=== PATIENT | female | born 2000 | race Caucasian/White ===

== ENCOUNTER 2019-08-07 15:24 | Inpatient (IN) ==
[2019-08-07] MEDS ORDERED: OXYTOCIN 30 UNITS/500ML NSS ONE (15:29)
[2019-08-07] MEDS ORDERED: SUPERCREAM 0.870% 15 GM JAR EXT PRN (15:55)
[2019-08-07] MEDS ORDERED: HYDROCORTISONE ACETATE 25 MG SUPP PR PRN (15:55)
[2019-08-07] MEDS ORDERED: OXYCODONE/ACETAMINOPHEN 5mg/325mg TAB PO PRN (15:55)
[2019-08-07] MEDS ORDERED: bisacodyL 10 MG SUPP PR PRN (15:55)
[2019-08-07] MEDS ORDERED: ACETAMINOPHEN 325 MG TAB PO PRN (15:55)
[2019-08-07] MEDS ORDERED: OXYTOCIN 30 UNITS/500 ML BAG IV PRN (15:55)
[2019-08-07] MEDS ORDERED: BENZOCAINE 20% AER SPR 82.5 GM CAN EXT PRN (15:55)
[2019-08-07] MEDS ORDERED: DIPHTHERIA/TETANUS/PERTUSSIS 0.5 ML SYR/VIAL IM ONE (15:55)
--- NOTE | 2019-08-07 15:58 | Delivery Summary ---
Vaginal Delivery Summary Date of Service August 07, 2019 Precipitous delivery patient arrived fully dilated and wishing to push she had received care in our office on exam she was fully and pushed over several contractions delivering a baby in occiput anterior position there was a loose nuchal cord that was passed over the baby's head and then gentle traction no excessive force baby was delivered live vigorous infant cord clamped and cut cord gases obtained there was some extensive tearing specifically she had a second-degree tear but somewhat of a sulcus on the left side as well these were repaired with 3-0 Vicryl I did use local anesthetic but it was somewhat suboptimal due to patient cooperation I did get the vagina hemostatic within limits and felt the vagina was repaired properly at the end estimated blood loss was 350 mL sponge and instrument counts were correct
[2019-08-07 16:18] LABS: Base Excess Cord Arterial Bld -2.6 mEq/L (-9-1.8); CO2 Cord Arterial Blood 54 mmHg (39.1-73.5); HCO3 Cord Arterial Blood 25 mmol/L (19.7-28.5); pH Cord Arterial Blood 7.28 (7.1-7.38)
[2019-08-07] MEDS: IBUPROFEN 600 MG TAB PO PRN (16:22)
[2019-08-07 16:23] LABS: Base Excess Cord Venous Blood -0.7 mEq/L (-7.7-1.9); Cord Venous Blood HCO3 23 mmol/L (18.4-26.8); Cord Venous Blood PCO2 35 mmHg (30.4-57.2); Cord Venous Blood PO2 27 mmHg (14.1-43.3); Cord Venous Blood pH 7.44 (7.20-7.44)
[2019-08-07 16:31] LABS: Oxygen Sat Cord Arterial Blood < 60.0 % (<60); PO2 Cord Arterial Blood < 10.0 % (4.1-31.7)
[2019-08-07] MEDS: DOCUSATE SODIUM 100 MG CAP PO SCH (20:20)
[2019-08-08] MEDS: IBUPROFEN 600 MG TAB PO PRN ×3 (04:41→20:08)
--- NOTE | 2019-08-08 05:53 | Obstetrical Progress Note ---
Date of Service August 08, 2019 Assessment & Plan (1) Status post vaginal delivery: Halle is a 19 yo on PPD 1 after a at term. - GBS -, Blood Type A+, Rubella immune -Vitals reviewed and WNL (Tmax 36.9) -Hemoglobin reviewed: 10.4 down to 9.6 (patient is asymptomatic and has been taking oral iron supplement since pre- period for anemia; we will continue ferrous sulfate 325mg,PO, twice daily) -Tylenol prn for headache -patient is doing clinically well Continue routine post- care. - After discharge will have [address] Cole. Supervising Physician Co-Signing Physician Notes Resident Physician Supervision Note: I interviewed and examined the patient. Discussed with Dr. Mancilla and agree with findings and plan as documented in the note. Any exceptions or clarifications are listed here: [None] Documented By: Yue Cole MD, FACOG Subjective Ambulation: ambulating normally Voiding: no voiding problems Passing Gas:: has not yet Diet Tolerance:: regular diet starting with breakfast Lochia:: Moderate Feeding Type:: breast feeding Review of Systems Constitutional: no fever, no chills and no sweats Eyes: no worsening vision Respiratory: no cough and no dyspnea Cardiovascular: no chest pain, no palpitations, no edema and no calf pain Gastrointestinal: no nausea and no vomiting Genitourinary: no dysuria and no urinary frequency Neurologic: + headache(s) (started this morning) Physical Exam Constitutional: WD/WN, vitals as above + obese; no acute distress Respiratory: normal respiratory effort, lungs clear to auscultation does not use accessory muscles Auscultation: no crackles, no rales, no rhonchi, no wheezes and no pleural rub Cardiovascular: Rate/Rhythm: regular rate and regular rhythm Heart Sounds: normal S1 and normal S2; no gallop, no murmur and no cardiac rub Extremities: no calf tenderness and no pedal edema Gastrointestinal (Abdomen): Inspection/Auscultation: normal bowel sounds; abdomen not distended Percussion/Palpation: abdomen soft Genitourinary: Uterus: fundus firm, palpable 2 cm below the umbilicus Results & Data Vital Signs (Past 12 Hours) Vital Signs Temp Pulse Resp BP Pulse Ox 11/20/19 05:04 36.9 C 88 16 116/76 98 08/08/19 00:09 36.8 C 85 16 111/69 98 08/07/19 18:50 36.9 C 97 H 20 115/74 08/07/19 18:00 36.8 C 20 Resident Activity Tracking Resident Involvement: Resident Care Provided Care Provided: OB Delivery
[2019-08-08 06:13] LABS: Hematocrit (blood only) 29.2 % (37-47); Hemoglobin 9.6 g/dL (12.0-16.0); Mean Corpuscular Hemoglobin 28.2 pg (25-34); Mean Corpuscular Hgb Conc 32.9 g/dL (32-36); Mean Corpuscular Volume 85.9 fL (80-100); Mean Platelet Volume 10.3 fL (7.4-10.4); Platelet Count 234 K/uL (130-400); RDW Coefficient of Variation 14.4 % (11.5-14.5); RDW Standard Deviation 44.7 fL (36.4-46.3); White Blood Count 15.13 K/uL (4.8-10.8)
[2019-08-08] MEDS: DOCUSATE SODIUM 100 MG CAP PO SCH ×2 (08:41→21:01)
[2019-08-08] MEDS: PRENATAL VITAMIN 1 TAB PO SCH (08:41)
[2019-08-08] MEDS ORDERED: bisacodyL 5 MG TABEC PO SCH (20:00)
[2019-08-09] MEDS: IBUPROFEN 600 MG TAB PO PRN (05:12)
[2019-08-09 06:05] LABS: Hematocrit (blood only) 29.3 % (37-47); Hemoglobin 9.5 g/dL (12.0-16.0)
--- NOTE | 2019-08-09 06:29 | Obstetrical Progress Note ---
Date of Service August 09, 2019 Assessment & Plan (1) Status post vaginal delivery: Halle is a 19 yo on PPD 2 after a at term. - GBS -, Blood Type A+, Rubella immune -Vitals reviewed and WNL -Hemoglobin reviewed: 10.4 down to 9.6 (patient is asymptomatic and has been taking oral iron supplement since pre- period for anemia; we will continue ferrous sulfate 325mg,PO, daily) -patient is doing clinically well Discharge instructions reviewed - After discharge will have [address] Cole. Supervising Physician Co-Signing Physician Notes Resident Physician Supervision Note: I was present with Dr. Mancilla during the history and exam. I discussed the case with the resident and agree with the findings and plan as documented in the note. Any exceptions or clarifications are listed here: pt doing well but having tailbone pain. perineum exam with normal healing no evid of hematoma or disrupted laceration site, ff 2 down. suspect needs supportive measures for tailbone and time. she verbalized understanding. plan 6wk pp check, other instructions reviewed. Ready for discharge. Documented By: Florence Mayorga MD, FACOG Subjective Ambulation: ambulating normally Voiding: no voiding problems Passing Gas:: yes Diet Tolerance:: regular Lochia:: Mild Feeding Type:: breast feeding Review of Systems Constitutional: no fever, no chills and no sweats Eyes: no worsening vision Respiratory: no cough and no dyspnea Cardiovascular: no chest pain, no palpitations and no calf pain Gastrointestinal: no nausea, no vomiting, no constipation and no diarrhea/loose stools Genitourinary: no dysuria and no urinary frequency Musculoskeletal: + back pain (discomfort at site of epidural) Neurologic: no headache(s) Physical Exam Constitutional: WD/WN, vitals as above + obese; no acute distress Eyes: + anicteric sclerae Neck: normal visual inspection Respiratory: normal respiratory effort, lungs clear to auscultation does not use accessory muscles Auscultation: no crackles, no rales, no rhonchi, no wheezes and no pleural rub Cardiovascular: Rate/Rhythm: regular rate and regular rhythm Heart Sounds: normal S1 and normal S2; no gallop, no murmur and no cardiac rub Extremities: no calf tenderness and no pedal edema Gastrointestinal (Abdomen): Inspection/Auscultation: normal bowel sounds; abdomen not distended Percussion/Palpation: abdomen soft Neurologic: awake; no focal motor deficits Psychiatric: A+Ox3, euthymic affect Genitourinary: Uterus: fundus firm, palpable 2 cm below the umbilicus Results & Data Vital Signs (Past 12 Hours) Vital Signs Temp Pulse Resp BP 08/09/19 00:10 36.8 C 85 18 117/70 08/08/19 19:50 36.6 C 98 H 18 120/80 Resident Activity Tracking Resident Involvement: Resident Care Provided Care Provided: OB Delivery
[2019-08-09] MEDS: PRENATAL VITAMIN 1 TAB PO SCH (08:25)
[2019-08-09] MEDS: DOCUSATE SODIUM 100 MG CAP PO SCH (08:25)
== END 2019-08-09 10:30 | disposition home or self-care (01) | DRG 807 ==
LOC: 4S1 15:24 → 4S2 18:20

== ENCOUNTER 2020-12-25 13:07 | Inpatient (IN) ==
[2020-12-25] MEDS ORDERED: OXYTOCIN 30 UNITS/500 ML BAG IV PRN ×3 (14:43→19:11)
[2020-12-25] MEDS ORDERED: LACTATED RINGER'S 1,000 ML IV PRN (14:43)
--- NOTE | 2020-12-25 14:49 | History & Physical Report ---
Date of Service December 25, 2020 Assessment & Plan (1) : Admission and Anticipated Discharge Date Admission Date: Admit to L&D for labor. EFM/toco, IV fluids, labs. COVID swab per policy. Patient is thinking she'd like to go without epidural, as she did not have one with last delivery. History of Present Illness Chief Complaint: labor Primary Care Provider: Karon Ramey PA-C 20yo @ 38 01/23, presents in labor to L&D. Was danna irregularly yesterday in office, cervix exam was 3cm. Today, ctx have picked up - was having ctx Q 4min prior to arrival at L&D. Upon arrival, feels like ctx have spaced somewhat, but still feeling them. + movement. No vaginal bleeding or leaking fluid. complicated by obesity and last delivery was within minutes of arrival at hospital. Allergies Allergy/AdvReac Type Severity Reaction Status Date / Time codeine AdvReac Severe SEVERE Verified 12/25/20 13:38 NAUSEA AND VOMITING Home Medications Medication Instructions Recorded Confirmed Type prenat.vits,gregorio,bbz-ygub-dbuob 1 tab PO DAILY 12/25/20 12/25/20 History [ Vitamin] Patient History Medical History History of anxiety History of chicken pox History of depression PCOS (polycystic ovarian syndrome) Surgical History History of wisdom tooth extraction Family History Brother Anxiety Cleft lip Cleft palate Depression Family history of fraternal twins Grandmother (Maternal) Anxiety Cleft lip Depression Diabetes Family history of fraternal twins Mother Kidney disease Ovarian cyst Grandmother Breast cancer Denies family history of Ovarian cancer Colorectal cancer Social History Smoking Status: Never smoker Hx Alcohol Use: No Hx Substance Use: No Preferred Language: Mexican Communication Ability: Effective Pick Up Driver Required: No Beliefs That Will Affect Care: None marital status: marital status details: Prieto Martinez (27) [phone] Current Living Situation: Spouse and Family Current Living Situation Comment: lives with spouse, daughter, 2 stepchildren, dog, cats-spouse changing ketan current occupational status: employed current occupation: [employer] Other Information That Helps Us Care for You: No Feels Safe at Home: Yes Safety Concerns: Feels Safe At This Time Assistive Devices: None Review of Systems All systems reviewed & are unremarkable except as noted in HPI & below Physical Exam Physical Exam: SVE 4-5/70/-3 Constitutional: WD/WN, vitals as above Respiratory: normal respiratory effort, lungs clear to auscultation no respiratory distress Cardiovascular: Rate/Rhythm: regular rate and regular rhythm Gastrointestinal (Abdomen): Inspection/Auscultation: abdomen normal to inspection Percussion/Palpation: abdomen soft; abdomen nontender Gravid. No s/s chorio or abruption. Skin: no rashes, warm and dry Psychiatric: A+Ox3, euthymic affect Results & Data ([facility]) Vital Signs (Past 12 Hours) Vital Signs Temp Pulse Resp BP 12/25/20 13:17 36.5 C 121 H 20 109/68 Monitoring External Monitor Cat 1 Tocodynamometer irregular, Q 2-7 Coding Level of Care Code None Diagnoses Z34.90
[2020-12-25 15:09] LABS: Hematocrit (blood only) 34.4 % (37-47); Hemoglobin 11.4 g/dL (12.0-16.0); Mean Corpuscular Hemoglobin 28.5 pg (25-34); Mean Corpuscular Hgb Conc 33.1 g/dL (32-36); Mean Platelet Volume 9.9 fL (7.4-10.4); Platelet Count 194 K/uL (130-400); RDW Coefficient of Variation 14.7 % (11.5-14.5); RDW Standard Deviation 45.7 fL (36.4-46.3); White Blood Count 11.54 K/uL (4.8-10.8)
--- NOTE | 2020-12-25 16:49 | Labor Progress Brief Note ---
Date of Service December 25, 2020 Subjective Ambulated in the halls. Ctx have picked up, now Q 5 min. FHT Cat 1 [place] Q 5 AROM clear fluid SVE 6-7/80/-2 Continue labor. Anticipate . Assessment & Plan Admission and Anticipated Discharge Date Admission Date: December 25, 2020 Results & Data ([facility]) Vital Signs (Past 12 Hours) Vital Signs Temp Pulse Resp BP 12/25/20 16:35 91 H 123/73 12/25/20 16:34 36.7 C 16 12/25/20 13:17 36.5 C 121 H 20 109/68 Coding Level of Care Code None
--- NOTE | 2020-12-25 18:02 | Labor Progress Brief Note ---
Date of Service December 25, 2020 Subjective Uncomfortable with contractions. FHT Cat 1, but difficult to trace due to body habitus and patient positioning Fellows - unable to trace ctx SVE 7-8/0 IUPC and FSE placed. Continue labor, anticipate . Assessment & Plan Admission and Anticipated Discharge Date Admission Date: December 25, 2020 Results & Data ([facility]) Vital Signs (Past 12 Hours) Vital Signs Temp Pulse Resp BP 12/25/20 16:35 91 H 123/73 12/25/20 16:34 36.7 C 16 12/25/20 13:17 36.5 C 121 H 20 109/68 Coding Level of Care Code None
[2020-12-25] MEDS ORDERED: IBUPROFEN 600 MG TAB PO ONE (19:04)
--- NOTE | 2020-12-25 19:10 | Delivery Summary ---
Vaginal Delivery Summary Date of Service December 25, 2020 Vaginal Delivery Summary [facility] Vaginal Delivery Summary: Pre-delivery diagnoses: 20yo @ 38 5/7, spontaneous labor, obesity Post-delivery diagnoses: same, shoulder dystocia (mild) Procedure: spontaneous vaginal delivery Surgeon: Anusha Guzman DO Complications: none Findings: Viable male . Apgars: 8/9. Weight pending, please see nursery records. Estimated blood loss: 300ml Description of delivery: The patient progressed to complete without anesthesia. She then began to push. She spontaneously vaginally delivered a viable from the cephalic presentation. The head delivered in ANDREINA position. Nuchal x 1, reduced. The anterior shoulder did not deliver immediately. Patient repositioned in McRobert's Maneuver. Baby began to turn clockwise with gentle guidance with spot machine operator's hand on anterior shoulder in a clockwise rotation motion. The posterior shoulder then delivered, followed by the anterior shoulder, followed by the body. The baby was placed on mother's abdomen and the cord was doubly clamped and cut, and baby was immediately handed off to waiting nursery team. A segment was retained for cord gases. Cord blood was obtained. The placenta was delivered spontaneously intact with a 3-vessel cord. The uterus and vagina were swept of clots and debris. IV pitocin was given. The uterus became firm. The cervix, vagina, and perineum were inspected and no lacerations were noted. Excellent hemostasis was observed. The mother and baby are recovering in stable and good condition in the room. Sponge and instrument counts were correct x 2. I debriefed patient and partner after delivery about the events of the mild shoulder dystocia. Questions answered. Anusha Guzman DO [facility] Vaginal Delivery Charge Delivery Type Details: [facility]
[2020-12-25] MEDS ORDERED: ACETAMINOPHEN 325 MG TAB PO PRN (19:11)
[2020-12-25] MEDS ORDERED: HYDROCORTISONE ACETATE 25 MG SUPP PR PRN (19:11)
[2020-12-25] MEDS ORDERED: DIPHTHERIA/TETANUS/PERTUSSIS 0.5 ML SYR/VIAL IM ONE (19:11)
[2020-12-25] MEDS ORDERED: BENZOCAINE 20% AER SPR 82.5 GM CAN EXT PRN (19:11)
[2020-12-25] MEDS ORDERED: oxyCODONE/ACETAMINOPHEN 5mg/325mg TAB PO PRN (19:11)
[2020-12-25] MEDS ORDERED: bisacodyL 10 MG SUPP PR PRN (19:11)
[2020-12-25] MEDS ORDERED: SUPERCREAM 0.870% 15 GM JAR EXT PRN (19:11)
[2020-12-25 19:21] LABS: CO2 Cord Arterial Blood 50 mmHg (39.1-73.5); HCO3 Cord Arterial Blood 27 mmol/L (19.7-28.5); PO2 Cord Arterial Blood 13 mmHg (4.1-31.7); pH Cord Arterial Blood 7.36 (7.1-7.38)
[2020-12-25] MEDS ORDERED: OXYTOCIN 30 UNITS/500ML NSS ONE (19:23)
[2020-12-25 19:28] LABS: Oxygen Sat Cord Arterial Blood < 60.0 % (<60)
[2020-12-25] MEDS: DOCUSATE SODIUM 100 MG CAP PO SCH (21:16)
[2020-12-26] MEDS: IBUPROFEN 600 MG TAB PO PRN ×5 (00:02→20:11)
--- NOTE | 2020-12-26 05:34 | Obstetrical Progress Note ---
Date of Service <Medardo Dean MD - Last Filed: 12/26/20 06:07> December 26, 2020 Assessment & Plan <Medardo Dean MD - Last Filed: 12/26/20 06:07> (1) (spontaneous vaginal delivery): Halle is a 20 y/o female who is now PPD #1 following at 38-5/7 weeks. Reports feeling well overall this morning. - Feels well today. Eating well, voiding well, ambulating well. - Pain well controlled with ibuprofen 600mg Q4H PRN. - Routine PPD care -- OOB, ambulation as tolerated - After discharge will have [address] Guzman (2) Maternal obesity, antepartum: Subjective <Medardo Dean MD - Last Filed: 12/26/20 06:07> Halle is a 20 y/o female who is now PPD #1 following at 38-5/7 weeks. Reports feeling well overall this morning. Endorsing mild abdominal cramping with pain well managed on analgesics. Voiding without difficulty. Tolerating meals well and able to ambulate some. Some persistent lochia with some improvement this morning. Bottle feeding. Review of Systems Denies fever, chills, sweats Denies shortness of breath, difficulty breathing, chest pain, palpitations, chest pressure. Denies breast pain. Denies dysuria. Denies headache or changes in vision. Physical Exam <Medardo Dean MD - Last Filed: 12/26/20 06:07> General: Alert, oriented. No acute distress. Cardiac: Regular rate and rhythm, no murmurs/rubs/gallops. Respiratory: Clear to auscultation bilaterally a/p, no wheezes/rales/rhonchi. No increased work of breathing. Symmetrical chest rise. No respiratory distress. Abdomen: Soft, nontender, nondistended. Bowel sounds present. Uterus: Uterine fundus firm, palpable 1 cm below umbilicus. Lower Extremities: No lower extremity edema or swelling. No deep calf pain. Jermain's negative bilaterally. Results & Data ([facility]) <Medardo Dean MD - Last Filed: 12/26/20 06:07> Vital Signs (Past 12 Hours) Vital Signs Temp Pulse Pulse Resp BP BP Pulse Ox 12/26/20 04:10 36.7 C 85 18 115/75 97 12/25/20 23:50 36.7 C 80 18 110/80 97 12/25/20 21:45 36.9 C 90 18 128/80 97 12/25/20 20:55 37.2 C 100 H 20 111/68 12/25/20 20:41 93 H 108/67 12/25/20 20:25 97 H 18 110/75 12/25/20 20:10 96 H 120/71 12/25/20 19:55 94 H 18 118/74 12/25/20 19:40 105 H 18 119/78 12/25/20 19:26 94 H 110/71 12/25/20 19:25 16 12/25/20 19:10 95 H 18 125/72 12/25/20 18:57 102 H 124/73 12/25/20 18:55 36.9 C 18 <Anusha Guzman DO - Last Filed: 12/26/20 06:55> Co-Signing Physician Notes Resident Physician Supervision Note: I was present with Dr. Dean during the history and exam. I discussed the case with the resident and agree with the findings and plan as documented in the note. Any exceptions or clarifications are listed here: PPD#1 doing well, anticipate DC home tomorrow. Documented By: Anusha Guzman DO Resident Activity Tracking <Medardo Dean MD - Last Filed: 12/26/20 06:07> Resident Involvement: Resident Care Provided Care Provided: Adult Hospital Medicine and OB Delivery
[2020-12-26 06:26] LABS: Hematocrit (blood only) 31.7 % (37-47); Hemoglobin 10.6 g/dL (12.0-16.0)
[2020-12-26] MEDS: DOCUSATE SODIUM 100 MG CAP PO SCH ×2 (07:46→20:10)
[2020-12-26] MEDS: PRENATAL VITAMIN 1 TAB PO SCH (07:46)
[2020-12-26] MEDS ORDERED: FLUoxetine HCL 20 MG CAP PO ONE (17:01)
[2020-12-26] MEDS ORDERED: bisacodyL 5 MG TABEC PO SCH (20:00)
--- NOTE | 2020-12-27 06:02 | Obstetrical Progress Note ---
Date of Service <Medardo Dean MD - Last Filed: 12/27/20 07:17> December 27, 2020 Assessment & Plan <Medardo Dean MD - Last Filed: 12/27/20 07:17> (1) (spontaneous vaginal delivery): Halle is a 20 y/o female who is now PPD #2 following at 38-5/7 weeks. Reports feeling well overall this morning. s/p - Feels well today. Eating well, voiding well, ambulating well. - Pain well controlled with ibuprofen 600mg Q4H PRN. - Routine PPD care -- OOB, ambulation as tolerated - Anticipate d/c today - After discharge will have [address] Guzman History of Depression -- mood stable at present - During last , patient reports she was managed for PPD by her PCP and was on something, but can't remember what -- after talking with Dr. Cole, does seem like may have been on Prozac - Not currently taking any antidepressants/stabilizers - As she is certainly at risk of developing PPD again, discussed pros, cons, and alternatives to starting SSRI - Would like to initiate med - will begin Prozac 20mg daily - Will require 1-week f/u in office for mood check; will also require regular PCP f/u (2) Maternal obesity, antepartum: Subjective <Medardo Dean MD - Last Filed: 12/27/20 07:17> Halle is a 20 y/o female who is now PPD #2 following at 38 weeks. Reports feeling well overall this morning. Endorses mild abdominal cramping with pain well managed on analgesics. Voiding without difficulty. Tolerating meals well and able to ambulate some. Some persistent lochia with some improvement this morning. Bottle feeding. Halle does report that following delivery of her last child, she struggled with significant depression. Described this as a very down mood with difficulties in energy, sleeping, and appetite. Denied any history or current desires to harm self, baby, or others. She notes that, at baseline, she struggles with anxiety, but also noticed an increase with this too at that time. While she reports feeling OK from a mood perspective right now, she is asking if she can be started on a medication to control any possible post- blues/depression before it might set on. Review of Systems Denies fever, chills, sweats Denies shortness of breath, difficulty breathing, chest pain, palpitations, chest pressure. Denies breast pain. Denies dysuria. Denies headache or changes in vision. Physical Exam <Medardo Dean MD - Last Filed: 12/27/20 07:17> General: Alert, oriented. No acute distress. Cardiac: Regular rate and rhythm, no murmurs/rubs/gallops. Respiratory: Clear to auscultation bilaterally a/p, no wheezes/rales/rhonchi. No increased work of breathing. Symmetrical chest rise. No respiratory distress. Abdomen: Soft, nontender, nondistended. Bowel sounds present. Uterus: Uterine fundus firm, palpable 1 cm below umbilicus. Lower Extremities: No lower extremity edema or swelling. No deep calf pain. Jermain's negative bilaterally. Psych: Appropriate behavior. Speaking spontaneously without increase in latency. Content appropriate. Denies SI/HI of self or baby. Mood is "fine right now." Affect is somewhat constricted. Insight seems appropriate. Results & Data ([facility]) <Medardo Dean MD - Last Filed: 12/27/20 07:17> Vital Signs (Past 12 Hours) Vital Signs Temp Pulse Resp BP Pulse Ox 12/26/20 23:05 36.5 C 94 H 16 111/17 L 97 12/26/20 19:40 36.8 C 96 H 17 125/82 100 <Yue Cole MD, FACOG - Last Filed: 12/27/20 07:18> Co-Signing Physician Notes Resident Physician Supervision Note: I interviewed and examined the patient. Discussed with Dr. Dean and agree with findings and plan as documented in the note. Any exceptions or clarifications are listed here: [None] Documented By: Yue Cole MD, FACOG Resident Activity Tracking <Medardo Dean MD - Last Filed: 12/27/20 07:17> Resident Involvement: Resident Care Provided Care Provided: Adult Hospital Medicine and OB Delivery
[2020-12-27] MEDS: IBUPROFEN 600 MG TAB PO PRN (07:15)
[2020-12-27] MEDS: DOCUSATE SODIUM 100 MG CAP PO SCH (09:06)
[2020-12-27] MEDS: PRENATAL VITAMIN 1 TAB PO SCH (09:06)
== END 2020-12-27 10:45 | disposition home or self-care (01) | DRG 807 ==
LOC: OPB 13:07 → 4S1 13:12 → 4S2 21:32